=== PATIENT | female | born 1940 | race African-American/Black ===

== ENCOUNTER 2016-07-14 16:29 | Outpatient (RCR) | payer OTHER | END 2016-08-09 | disposition home or self-care (01) | LOC: PTY 16:29 | DX: M54.16 Radiculopathy, lumbar region (principal); M54.5 Low back pain; M19.90 Unspecified osteoarthritis, unspecified site; R03.0 Elevated blood-pressure reading, without diagnosis of hypertension ==

== ENCOUNTER 2016-08-10 16:00 | Outpatient (RCR) | payer OTHER | END 2016-09-06 | disposition home or self-care (01) | LOC: PTY 16:00 | DX: M54.16 Radiculopathy, lumbar region (principal) ==

== ENCOUNTER 2016-09-15 11:57 | Outpatient (RCR) | payer OTHER | END 2016-10-07 | disposition home or self-care (01) | LOC: PTY 11:57 | DX: M54.16 Radiculopathy, lumbar region (principal); M19.90 Unspecified osteoarthritis, unspecified site; Z48.89 Encounter for other specified surgical aftercare ==

== ENCOUNTER 2016-10-10 14:30 | Outpatient (RCR) | payer OTHER | END 2016-11-06 | disposition home or self-care (01) | LOC: PTY 14:30 | DX: M54.16 Radiculopathy, lumbar region (principal) ==

== ENCOUNTER 2016-11-08 10:57 | Outpatient (RCR) | payer OTHER | END 2016-12-07 | disposition home or self-care (01) | LOC: PTY 10:57 | DX: M54.16 Radiculopathy, lumbar region (principal); G60.9 Hereditary and idiopathic neuropathy, unspecified; Z98.1 Arthrodesis status ==

== ENCOUNTER 2016-12-09 12:45 | Outpatient (RCR) | payer OTHER | END 2017-01-06 | disposition home or self-care (01) | LOC: PTY 12:45 | DX: M54.16 Radiculopathy, lumbar region (principal); G60.9 Hereditary and idiopathic neuropathy, unspecified; Z98.1 Arthrodesis status ==

== ENCOUNTER 2017-03-08 13:28 | Outpatient (RCR) | payer OTHER | END 2017-03-09 | disposition home or self-care (01) | LOC: PTY 13:28 | DX: R26.89 Other abnormalities of gait and mobility (principal); M54.16 Radiculopathy, lumbar region; G60.9 Hereditary and idiopathic neuropathy, unspecified; Z98.1 Arthrodesis status ==

== ENCOUNTER 2017-03-28 14:07 | Outpatient (RCR) | payer OTHER | END 2017-04-08 | disposition home or self-care (01) | LOC: PTY 14:07 | DX: M54.16 Radiculopathy, lumbar region (principal); G60.9 Hereditary and idiopathic neuropathy, unspecified; R26.89 Other abnormalities of gait and mobility ==

== ENCOUNTER 2017-04-05 14:00 | Outpatient (RCR) | payer OTHER | END 2017-04-08 | disposition home or self-care (01) | LOC: PTY 14:00 | DX: R26.89 Other abnormalities of gait and mobility (principal) ==

== ENCOUNTER 2017-04-19 14:00 | Outpatient (RCR) | payer OTHER | END 2017-05-09 | disposition home or self-care (01) | LOC: PTY 14:00 | DX: R26.89 Other abnormalities of gait and mobility (principal) ==

== ENCOUNTER → 2017-05-09 | Outpatient (RCR) | payer OTHER | END | disposition home or self-care (01) | LOC: PTY 05-03 14:18 | DX: M54.16 Radiculopathy, lumbar region (principal); G60.9 Hereditary and idiopathic neuropathy, unspecified; R26.89 Other abnormalities of gait and mobility; R26.9 Unspecified abnormalities of gait and mobility; I10 Essential (primary) hypertension ==

== ENCOUNTER 2017-05-10 02:00 | Outpatient (RCR) | payer OTHER | END 2017-06-08 | disposition home or self-care (01) | LOC: PTY 02:00 | DX: R26.89 Other abnormalities of gait and mobility (principal) ==

== ENCOUNTER 2017-06-07 13:00 | Outpatient (RCR) | payer OTHER | END 2017-06-08 | disposition home or self-care (01) | LOC: PTY 13:00 | DX: M54.16 Radiculopathy, lumbar region (principal); G60.9 Hereditary and idiopathic neuropathy, unspecified; R26.89 Other abnormalities of gait and mobility; I10 Essential (primary) hypertension; Z98.1 Arthrodesis status ==

== ENCOUNTER 2017-06-29 14:00 | Outpatient (RCR) | payer OTHER | END 2017-07-09 | disposition home or self-care (01) | LOC: PTY 14:00 | DX: M54.16 Radiculopathy, lumbar region (principal); G60.9 Hereditary and idiopathic neuropathy, unspecified; R26.89 Other abnormalities of gait and mobility ==